=== PATIENT | female | born 1985 | race Two or more races ===

== ENCOUNTER 2016-09-03 20:07 | Emergency (ER) | payer MEDICAID ==
[~2016-09-03] VITALS: Ht 127 cm; Wt 81.6 kg
[~2016-09-03 20:07] MED LIST: MECLIZINE HCL25 MG ORAL; NKM; ZOFRAN4 M3 ORAL; [UNRECOGNIZED DRUG - OTHER] TOPIC
[2016-09-03 20:27] VITALS: BP 163/92
--- NOTE | 2016-09-03 20:29 | Emergency Room Report ---
History of Present Illness General Chief Complaint: Abdominal Pain Source: Patient Present Illness HPI Patient presents with complaints of suprapubic discomfort Cramping Ongoing for the past 2 months patient reports that she missed her cycle for the last 2 months as well Denies any chest pain shortness of breath she has some increased urination with discomfort patient is sexually active Reports having recent blood work and urine sample done and was told that she was not Denies any flank pain as any fall or trauma patient also reports a mild vaginal discharge with questionable foul smell Allergies: Coded Allergies: ACETAMINOPHEN (Verified Allergy, Intermediate, Hives, 09/03/16) PENICILLINS (Unverified Allergy, Unknown, Hives, 09/03/16) Patient History Past Medical History: see triage record Pertinent Family History: none Last Menstrual Period: 2 months ago Now: No : 2 Para: 0 Reviewed Nursing Documentation: PMH: Agreed, PSxH: Agreed Nursing Documentation-PMH Past Medical History: No Stated History Review of Systems All Other Systems: negative except mentioned in HPI Physical Exam Vital Signs Date Time Temp Pulse Resp B/P Pulse Ox O2 Delivery O2 Flow Rate FiO2 09/03/16 20:12 98.1 84 16 163/92 100 Room Air Sp02 EP Interpretation: reviewed, normal General Appearance: well appearing, no apparent distress Head: normocephalic, atraumatic Eyes: bilateral eye EOMI, bilateral eye PERRL ENT: hearing grossly normal, normal pharynx, TMs + canals normal, uvula midline Neck: full range of motion, supple, no meningismus, no bony tend Respiratory: lungs clear, normal breath sounds, no rhonchi, no respiratory distress, no retraction, no accessory muscle use Cardiovascular #1: normal peripheral pulses, regular rate, rhythm, no edema, no gallop, no JVD, no murmur Gastrointestinal: normal bowel sounds, soft, no mass, no organomegaly, non- distended, no guarding, no hernia, no pulsatile mass, no rebound, tenderness - Mild discomfort to the suprapubic area Genitourinary: no CVA tenderness Musculoskeletal: normal inspection Neurologic: oriented x3, responsive, nursing home manager III-XII nml as tested, motor strength/ tone normal, sensory intact Psychiatric: mood/affect normal Skin: normal color, no rash, warm/dry, palpation normal Lymphatic: normal inspection, no adenopathy Medical Decision Making Diagnostic Impression: Primary Impression: PID (acute pelvic inflammatory disease) ER Course With the patient's history and examination, multiple differentials considered, including but not limited to , ectopic , ovarian torsion, gastritis, cholecystitis, pancreatitis, appendicitis Given the exam and the location of the pain however does not appear to be in the area of the appendix Also symptoms ongoing for the past 2 weeks Given the negative urine Given the patient's recent blood work at her chronic facility Patient is diagnosed with likely vaginitis/pelvic inflammatory pathology Placed on oral antibiotics and requires close outpatient followup Labs Test 09/03/16 20:33 Urine Color Pale yellow Urine Appearance Clear Urine pH 6 (4.5-8.0) Urine Specific [place] 1.015 (1.005-1.035) Urine Protein Negative (NEGATIVE) Urine Glucose (UA) Negative (NEGATIVE) Urine Ketones Negative (NEGATIVE) Urine Occult Blood Negative (NEGATIVE) Urine Nitrite Negative (NEGATIVE) Urine Bilirubin Negative (NEGATIVE) Urine Urobilinogen Normal MG/DL (0.0-1.0) Urine Leukocyte Esterase Negative (NEGATIVE) Urine HCG, Qualitative Negative Last Vital Signs Date Time Temp Pulse Resp B/P Pulse Ox O2 Delivery O2 Flow Rate FiO2 09/03/16 20:12 98.1 84 16 163/92 100 Room Air Status: improved Disposition: HOME, SELF-CARE Condition: Improved Scripts Doxycycline Monohydrate* (DOXYCYCLINE MONOHYDRATE*) 100 Mg Capsule 100 MG ORAL Q12H, #14 CAP 0 Refills Prov: SALAZAR FRY D.O. 09/03/16 Ibuprofen* (MOTRIN*) 600 Mg Tablet 600 MG ORAL Q8H Y for For Pain, #20 TAB 0 Refills Prov: SALAZAR FRY D.O. 09/03/16 Additional Instructions: Patient is provided with the discharge instructions notified to follow up with primary doctor in the next 2-3 days otherwise return to the er with any worsening symptoms. Please note that this report is being documented using [employer] technology. This can lead to erroneous entry secondary to incorrect interpretation by the dictating instrument. SALAZAR FRY D.O. Sep 03, 2016 20:29
[2016-09-03 20:51] LABS: KETONES,URINE NEGATIVE (NEGATIVE); LEUKOCYTE ESTERASE ,URINE NEGATIVE (NEGATIVE); NITRITE,URINE NEGATIVE (NEGATIVE); PH,URINE 6 (4.5-8.0); PROTEIN,URINE NEGATIVE (NEGATIVE); UROBILINOGEN,URINE NORMAL MG/DL (0.0-1.0)
[2016-09-03 20:54] LABS: APPEARANCE,URINE CLEAR
[2016-09-03] MEDS ORDERED: IBUPROFEN600 MG ORAL (21:11)
[2016-09-03] MEDS ORDERED: DOXYCYCLINE MO100 MG ORAL (21:11)
[2016-09-03 21:28] VITALS: BP 154/88
== END 2016-09-03 21:24 | disposition home or self-care (01) ==
LOC: EMR 20:38
DX: N73.9 Female pelvic inflammatory disease, unspecified (principal); Z88.0 Allergy status to penicillin; Z88.6 Allergy status to analgesic agent
CPT/HCPCS: 81003; 81025; 99284